=== PATIENT | female | born 1960 | race Caucasian/White ===

== ENCOUNTER 2019-11-16 10:46 | Day surgery (SDC) | payer BC ==
[2019-11-11 16:11] LABS: Hemoglobin 13.2 g/dL (12.0-16.0); Mean Corpuscular HGB CONC 33.8 g/dL (32.0-36.0); Mean Corpuscular Volume 88.8 fL (78.0-98.0); Mean Platelet Volume 8.1 fL (7.4-10.4); Platelet Count 221 thou/uL (130-400); Red Blood Cell (RBC) Count 4.39 mill/uL (4.20-5.40); White Blood Cell (WBC) Count 6.2 thou/uL (4.8-10.8)
[2019-11-12 12:04] LABS: SARS-CoV-2 MS2 Positive; SARS-CoV-2 N Gene Negative; SARS-CoV-2 S Gene Negative; SARS-CoV-2 by NAA Not Detected (NotDetected); SARS-CoV-2 orf1ab Negative
[2019-11-12 13:29] VITALS: BMI 26.5
[2019-11-16] MEDS ORDERED: Ondansetron PF 4 MG/2 ML Vial ONE (11:29)
[2019-11-16] MEDS ORDERED: Lidocaine 1% PF 5 ML VIAL ONE (11:29)
[2019-11-16] MEDS ORDERED: Dexamethasone 20 MG/5 ML VIAL ONE (11:29)
[2019-11-16] MEDS ORDERED: PROPOFOL 200 MG/20 ML VIAL ONE (11:29)
--- NOTE | 2019-11-16 11:38 | HP ---
She is set for day of surgery today, 11/15. HISTORY OF PRESENT ILLNESS: Ms. Piña is a 59-year-old female with history of estrogen receptor positive breast cancer. She underwent a lumpectomy in the past approximately 9 years ago. She has been on tamoxifen therapy for adjuvant treatment and has had issues with recurrent uterine bleeding. She has been managed by Dr. Sulema Maher for the [facility] and has had several ultrasounds, most recently on 10/12, showing an endometrial lining of 8 mm. She has had benign endometrial biopsies in the past. Due to recurrence of the bleeding, she is scheduled for a diagnostic hysteroscopy with D and C. PAST MEDICAL HISTORY: 1. Estrogen receptor-positive breast cancer. 2. She has arthritis. 3. Hyperlipidemia. 4. Hypertension. CURRENT MEDICATIONS: 1. Celebrex 200 mg daily for arthritis. 2. Crestor 5 mg daily. 3. Gabapentin 300 mg tablet at bedtime. 4. Tamoxifen 20 mg tablet daily. 5. Triamterene 37.5/hydrochlorothiazide 25 mg daily for hypertension. PAST SURGICAL HISTORY: 1. section. 2. Lumpectomy of her left breast. OBSTETRICAL HISTORY: She is a G4, P3, A1. FAMILY HISTORY: Noncontributor. SOCIAL HISTORY: Nonsmoker. PHYSICAL EXAMINATION: VITAL height: Her height is 5 feet 10 inches, weight 187, BMI 26.8, blood pressure 116/72, pulse 67 and regular, respiratory rate 18, and O2 saturation 98% on room air. HEENT: Within normal limits. CHEST: Clear to auscultation. HEART: Regular rate and rhythm. S1 and S2 heart sounds. No murmurs, rubs, or gallops. ABDOMEN: Soft, nondistended with no palpable masses. PELVIC: Vulva and vagina had no lesions. Cervix had no lesions. Her uterus was small and nontender. Adnexa were nontender with no masses. ASSESSMENT: This is a 59-year-old woman with estrogen receptor positive breast cancer, on long-term tamoxifen therapy, with recurrent uterine bleeding. Recent ultrasound shows an endometrial biopsy of 8 mm for previous benign biopsies. PLAN: Plan for diagnostic hysteroscopy with D and C. this is set for 11/15. Job ID: [id number]
[2019-11-16] MEDS ORDERED: CeleCOXIB 100 MG CAP ONE (11:50)
[2019-11-16] MEDS ORDERED: Midazolam HCl 2 mg/2 ml Vial ONE (11:55)
[2019-11-16] MEDS ORDERED: Fentanyl 100 MCG/2 ML VIAL ONE ×2 (12:21→14:38)
[2019-11-16] MEDS ORDERED: Meperidine HCl/PF 25 MG/ML VIAL ONE (14:46)
--- NOTE | 2019-11-16 22:03 | OP ---
DATE OF PROCEDURE: 11/16/2019 PREOPERATIVE DIAGNOSIS: A 59-year-old female with history of estrogen receptor positive breast cancer, on tamoxifen x9 years with recurrent intermittent postmenopausal bleeding. POSTOPERATIVE DIAGNOSIS: A 59-year-old female with history of estrogen receptor positive breast cancer, on tamoxifen x9 years with recurrent intermittent postmenopausal bleeding. PROCEDURE PERFORMED: Diagnostic hysteroscopy with D and C. ANESTHESIA: General. ESTIMATED BLOOD LOSS: Less than 10 mL. COMPLICATIONS: None. FINDINGS: 1. Inspection of endometrial cavity and endocervical canal showed no evidence of any lesions and the endometrial cavity had an atrophic appearing lining. 2. Distention media of saline with a deficit less than 100 mL. DISPOSITION: To recovery room and then plan for discharge home. DESCRIPTION OF PROCEDURE: The patient previously received informed consent in regard to surgery. She was taken back to the operating room, where she received a general anesthetic agent without complications. She was placed in the dorsal lithotomy position with the use of Xander stirrups. Prepped and draped in usual sterile fashion. In and out catheterization of bladder was performed. Side-arm speculum was placed in vagina. Anterior lip of the cervix was grasped with single-tooth tenaculum. The uterus sounded to 8 cm. The cervix was sequentially dilated to a size 16 Iniguez dilator and hysteroscope was introduced through the cervical os into the endometrial cavity with distention media at 80 mm of pressure with saline. The uterus was inspected with the previously mentioned findings. A sharp curettage of the endometrial cavity was then obtained and the curettings were sent for final pathology. The tenaculum was removed. The pressure at the site of the tenaculum point was given with a sponge stick for hemostasis. The patient was then awakened from anesthesia and transferred to recovery room in stable condition. Job ID: [id number]
== END 2019-11-16 16:48 | disposition home or self-care (01) ==
LOC: SDC 10:46 → EDBD 12:00 → SDC 16:48
PROVIDERS: ATTEND Obstetrics & Gynecology
PROC: 0UDB8ZZ Extraction of Endometrium, Via Natural or Artificial Opening Endoscopic (ICD-10-PCS; principal; 2019-11-16)
DX: N95.0 Postmenopausal bleeding (principal); I10 Essential (primary) hypertension; E78.5 Hyperlipidemia, unspecified; M19.90 Unspecified osteoarthritis, unspecified site; Z79.899 Other long term (current) drug therapy
CPT/HCPCS: 36415; 85027; 86850; 86900; 86901; 87635; 88305; J0690; J1100; J2175; J2250; J2405; J2704; J3010; U0003

== ENCOUNTER → 2020-01-29 | Day surgery (SDC) | payer BC ==
--- NOTE | 2020-01-29 13:45 | MMO ---
FILMS COMPARED: The present examination has been compared to prior imaging studies performed at [facility] on 11/20/2018, 01/20/2020 and 01/21/2020, and at [facility] on 12/04/2017. MAMMOGRAM FINDINGS: There are scattered fibroglandular densities. There is a new biopsy clip seen in the upper-outer region of the right breast. IMPRESSION: NEW BIOPSY CLIP IN THE RIGHT BREAST IS CONFIRMED UTILIZING POST PROCEDURE MAMMOGRAM. Reported by: WIN REILLY MD Electonically Signed: [id number]
--- NOTE | 2020-01-29 14:26 | ULT ---
EXAM: US Breast Bx US Guided Biopsy marker clip right breast PROVIDED CLINICAL HISTORY: Patient with history of right-sided breast cancer and on tamoxifen therapy. Patient has a new hypoech oic spiculated mass with posterior shadowing in the right breast. Biopsy recommended. COMPARISON: Right breast ultrasound 01/21/2020 FINDINGS: The procedure including the risks and complications were explained to the patient, and informed conse nt was obtained. Patient was placed on the sonography table in the supine position. The mass at the 10:00 position right breast was again localized. The area was meticulously prepped and draped in usua l sterile fashion. The skin and subcutaneous tissues were infiltrated with buffered 1% lidocaine for local anesthesia. A small skin incision was made. Utilizing concurrent real-time ultrasound guidance, a total of 4 core needle biopsy specimens were obtained utilizing a 14-gauge core biopsy needle. A biopsy marker clip was deployed with ultrasound guidance at site of biopsy 10:00 position right larisa ast. Hemostasis was achieved with direct pressure. Dry sterile dressing was placed. The patient tolerated the procedure well and without immediate complication. IMPRESSION: 1. Hypoechoic spiculated mass 10:00 position right breast. 2. Technically successful ultrasound-guided biopsy right breast mass. 3. Technically successful biopsy marker clip at site of biopsy.
== END ==
LOC: BICULT 12:38
PROVIDERS: ATTEND Internal Medicine
PROC: 0H9T3ZX Drainage of Right Breast, Percutaneous Approach, Diagnostic (ICD-10-PCS; principal; 2020-01-29)
DX: C50.411 Malignant neoplasm of upper-outer quadrant of right female breast (principal); Z79.810 Long term (current) use of selective estrogen receptor modulators (SERMs)
CPT/HCPCS: 19083; 88305